=== PATIENT | female | born 1975 | race Caucasian/White ===

== ENCOUNTER 2018-01-04 08:42 | Inpatient (IN) | payer BC ==
[~2018-01-04] VITALS: Ht 180.3 cm; Wt 134.5 kg
[2018-01-04] MEDS ORDERED: ceFAZolin 1GM/50ML 50 ML IV ONE (09:15)
[2018-01-04 09:36] LABS: Basophils # (auto) 0.1 uL; Basophils % (auto) 0.5 % (0.0-2.0); Eosinophils # (auto) 0.3 uL; Eosinophils % (auto) 3.3 % (0.0-7.0); Hematocrit 38.8 % (36.0-46.0); Hemoglobin 13.1 g/dL (12.2-16.2); Lymphocytes # (auto) 2.6 uL; Lymphocytes % (auto) 26.9 % (10.0-50.0); Mean Corpuscular Hemoglobin 31.1 pg (28.0-32.0); Mean Corpuscular Hgb Conc. 33.8 g/dL (32.0-36.0); Mean Corpuscular Volume 91.9 fL (80.0-100.0); Monocytes # (auto) 0.7 uL; Monocytes % (auto) 6.7 % (0.0-12.0); Neutrophils # (auto) 6.1 uL; Neutrophils % (auto) 62.6 % (37.0-80.0); Nucleated Red Blood Cells % 0.1 %; Platelet Count (auto) 343 10^3/uL (140-450); Red Blood Cells 4.22 10^6/uL (4.0-5.20); Red Cell Distribution Width 13.2 % (11.8-14.3); White Blood Cell 9.8 10^3/uL (4.4-10.8)
[2018-01-04 09:48] LABS: BUN/Creatinine Ratio 22.7; Calcium 8.3 mg/dL (8.5-10.1); Potassium 3.8 mmol/L (3.5-5.1)
[2018-01-04 10:03] LABS: INR 0.9 (0.9-1.15); Partial Thromboplastin Time 26.2 sec (23.78-33.04); Prothrombin Time 9.7 sec (9.27-12.13)
[2018-01-04] MEDS ORDERED: fentaNYL CITRATE 5 ML ONE (12:00)
[2018-01-04] MEDS ORDERED: PROPOFOL 10 MG/ML 20 ML IV ONE (12:00)
[2018-01-04] MEDS ORDERED: ROCURONIUM 10MG/ML 10ML VIAL IV ONE (12:00)
[2018-01-04] MEDS ORDERED: MIDAZOLAM HCL 1MG/1ML-2 ML VIAL ONE (12:00)
[2018-01-04] MEDS ORDERED: LIDOCAINE W/ EPINEPHRINE 1 % INJ 30ML ONE (12:07)
[2018-01-04] MEDS ORDERED: BUPIVACAINE W/ EPINEPH 0.25% INJ 50ML MDV ONE (12:07)
[2018-01-04] MEDS ORDERED: MORPHINE SULF(PF) 0.5MG/ML 10ML VIAL ONE (12:43)
[2018-01-04] MEDS ORDERED: MORPHINE SULF INJ 2 MG/ML SYRINGE 1ML ONE (12:46)
[2018-01-04] MEDS ORDERED: MORPHINE SULFATE 4 MG/ML SYR/VIAL IV PRN (14:00)
[2018-01-04] MEDS ORDERED: NITROGLYCERIN 0.4 MG SL TAB SL PRN (14:00)
[2018-01-04] MEDS ORDERED: hydrALAZINE HCL 20 MG/ML VL IV PRN (14:15)
[2018-01-04] MEDS ORDERED: ONDANSETRON HCL 4 MG/2 ML VIAL IV ONE (14:15)
[2018-01-04] MEDS ORDERED: ePHEDrine SULFATE 50 MG/ML AMP IV PRN (14:15)
[2018-01-04] MEDS: HYDROmorphone HCL 2 MG/ML VL IV PRN ×6 (14:48→23:42)
[2018-01-04 17:00] VITALS: BP 130/96
[2018-01-04] MEDS ORDERED: LOSA-49 PO (17:03)
[2018-01-04] MEDS ORDERED: LEVO100T8 PO (17:03)
[2018-01-04 17:56] LABS: Basophils # (auto) 0.1 uL; Basophils % (auto) 0.4 % (0.0-2.0); Eosinophils # (auto) 0.1 uL; Eosinophils % (auto) 0.8 % (0.0-7.0); Hematocrit 37.6 % (36.0-46.0); Hemoglobin 12.8 g/dL (12.2-16.2); Lymphocytes # (auto) 1.7 uL; Lymphocytes % (auto) 12.6 % (10.0-50.0); Mean Corpuscular Hemoglobin 31.1 pg (28.0-32.0); Mean Corpuscular Volume 91.6 fL (80.0-100.0); Monocytes # (auto) 0.9 uL; Monocytes % (auto) 6.6 % (0.0-12.0); Neutrophils # (auto) 10.6 uL; Neutrophils % (auto) 79.6 % (37.0-80.0); Platelet Count (auto) 312 10^3/uL (140-450); Red Blood Cells 4.11 10^6/uL (4.0-5.20); Red Cell Distribution Width 13.2 % (11.8-14.3); White Blood Cell 13.3 10^3/uL (4.4-10.8)
[2018-01-04 18:12] LABS: BUN/Creatinine Ratio 17.6; Calcium 7.7 mg/dL (8.5-10.1); Potassium 4.3 mmol/L (3.5-5.1)
[2018-01-04] MEDS: ceFAZolin 1GM/50ML 50 ML IV SCH ×2 (18:33→23:41)
[2018-01-04 21:42] VITALS: BP 142/88
[2018-01-05] MEDS: traMADol HCL 50 MG TAB PO PRN ×2 (01:16→07:14)
[2018-01-05] MEDS: HYDROmorphone HCL 2 MG/ML VL IV PRN ×6 (01:57→16:32)
[2018-01-05 05:12] VITALS: BP 164/90
[2018-01-05 05:15] VITALS: BP 145/82
[2018-01-05] MEDS: ceFAZolin 1GM/50ML 50 ML IV SCH ×2 (05:29→12:12)
[2018-01-05] MEDS ORDERED: LEVOTHYROXINE SODIUM 100 MCG TAB PO SCH (07:00)
[2018-01-05 09:00] VITALS: BP 157/92
[2018-01-05] MEDS ORDERED: LOSARTAN POTASSIUM 50 MG TAB PO SCH (10:00)
[2018-01-05 13:00] VITALS: BP 142/80
[2018-01-05 16:07] VITALS: BP 142/80
== END 2018-01-05 16:54 | disposition home or self-care (01) | DRG 494 ==
LOC: SUR 08:42 → WEST WING 08:43
PROVIDERS: ADMIT Orthopaedic Surgery; ATTEND Orthopaedic Surgery
PROC: 0QSG04Z Reposition Right Tibia with Internal Fixation Device, Open Approach (ICD-10-PCS; 2018-01-04)
PROC: 0QSJ04Z Reposition Right Fibula with Internal Fixation Device, Open Approach (ICD-10-PCS; principal; 2018-01-04 11:55)
DX: S82.201A Unspecified fracture of shaft of right tibia, initial encounter for closed fracture (principal); S82.401A Unspecified fracture of shaft of right fibula, initial encounter for closed fracture; E03.9 Hypothyroidism, unspecified; I10 Essential (primary) hypertension; W19.XXXA Unspecified fall, initial encounter; Y93.89 Activity, other specified; Y92.89 Other specified places as the place of occurrence of the external cause; Y99.8 Other external cause status
CPT/HCPCS: 36415; 71045; 73590; 73600; 80048; 84702; 85025; 85610; 85730; J0330; J0690; J2250; J2704